=== PATIENT | female | born 1990 | race Caucasian/White ===

== ENCOUNTER 2019-05-20 19:59 | Emergency (ER) | payer MEDICAID ==
[~2019-05-20] VITALS: Ht 154.9 cm; Wt 87.0 kg
[2019-05-20] MEDS ORDERED: KETOROLAC 30MG/ML VIAL IV STA (20:48)
[2019-05-20] MEDS ORDERED: SODIUM CHLORIDE 0.9% 1,000 ML IV ONE (20:48)
[2019-05-20 21:22] LABS: CHLORIDE 107 mEq/L (98-107)
[2019-05-20 21:24] LABS: COLOR URINE ORANGE (YELLOW); KETONES URINE 2+ (NEGATIVE); LEUKOCYTE ESTERASE URINE 1+ (NEGATIVE); NITRITE URINE POSITIVE (NEGATIVE); OCCULT BLOOD URINE NEGATIVE (NEGATIVE); PROTEIN URINE NEGATIVE (NEGATIVE); SPECIFIC GRAVITY URINE 1.024 (1.005-1.030)
[2019-05-20 21:27] LABS: CLARITY URINE HAZY (CLEAR)
[2019-05-20 21:29] LABS: HEMATOCRIT. 44.4 % (36.0-48.0); HEMOGLOBIN. 15.1 g/dL (12.0-16.0); MEAN CORPUSCULAR HEMOGLOBIN 29.7 pg (28.0-32.0); MEAN CORPUSCULAR VOLUME 87.6 fL (81.0-99.0); MEAN PLATELET VOLUME 9.4 fl (7.4-10.4); PLATELET 317 x1000/uL (130-400); RED BLOOD CELL COUNT 5.07 mill/uL (4.2-5.4); RED CELL DISTRIBUTION WIDTH 14.5 % (11.6-14.6)
[2019-05-20 21:54] LABS: PLATELET ESTIMATE NORMAL
[2019-05-20 23:45] VITALS: BP 125/89
== END 2019-05-21 00:50 | disposition home or self-care (01) ==
LOC: ER 19:59
DX: N39.0 Urinary tract infection, site not specified (principal); R11.0 Nausea; Z86.73 Personal history of transient ischemic attack (TIA), and cerebral infarction without residual deficits; Z98.890 Other specified postprocedural states
CPT/HCPCS: 36415; 80053; 81003; 81025; 83690; 85025; 96374; 99283; J1885; J7030

== ENCOUNTER 2019-11-23 16:04 | Emergency (ER) | payer MEDICAID ==
[~2019-11-23] VITALS: Ht 162.6 cm; Wt 80.0 kg
[2019-11-23 16:28] VITALS: BP 112/68
== END 2019-11-24 00:09 | disposition left against medical advice (07) ==
LOC: ER 16:04
DX: R11.2 Nausea with vomiting, unspecified (principal); I49.9 Cardiac arrhythmia, unspecified; Z53.21 Procedure and treatment not carried out due to patient leaving prior to being seen by health care provider
CPT/HCPCS: 93005

== ENCOUNTER 2020-08-30 21:47 | Emergency (ER) | payer MEDICAID ==
[~2020-08-30] VITALS: Ht 154.9 cm; Wt 82.0 kg
[2020-08-30 22:41] LABS: CLARITY URINE TURBID (CLEAR); COLOR URINE YELLOW (YELLOW); KETONES URINE NEGATIVE (NEGATIVE); LEUKOCYTE ESTERASE URINE TRACE (NEGATIVE); NITRITE URINE NEGATIVE (NEGATIVE); OCCULT BLOOD URINE NEGATIVE (NEGATIVE); PH URINE 7.5 (4.5-8.0); PROTEIN URINE NEGATIVE (NEGATIVE); SPECIFIC GRAVITY URINE 1.023 (1.005-1.030)
[2020-08-30 22:42] LABS: BASOPHILS % 0.9 % (0.0-2.0); EOSINOPHILS % 2.6 % (0.0-5.0); HEMATOCRIT. 43.7 % (36.0-48.0); HEMOGLOBIN. 15.2 g/dL (12.0-16.0); LYMPHOCYTES % 24.7 % (20.0-50.0); MEAN CORPUSCULAR HEMOGLOBIN 30.9 pg (28.0-32.0); MEAN CORPUSCULAR VOLUME 89.1 fL (81.0-99.0); MEAN PLATELET VOLUME 8.6 fl (7.4-10.4); MONOCYTES % 10.6 % (2.0-8.0); NEUTROPHILS % 61.2 % (40.0-76.0); PLATELET 376 x1000/uL (130-400); RED CELL DISTRIBUTION WIDTH 13.5 % (11.6-14.6)
[2020-08-30 22:49] LABS: CHLORIDE 107 mEq/L (98-107)
[2020-08-30 23:00] LABS: B-HCG QUANTITATIVE < 1 mIU/mL (<3)
[2020-08-31] MEDS ORDERED: DOXY100C2 MT (01:07)
[2020-08-31] MEDS ORDERED: CEPH500C2 MT (01:07)
[2020-08-31] MEDS ORDERED: CEFTRIAXONE 1 G PREMIX 50 ML IV ONE (01:15)
[2020-08-31 01:50] VITALS: BP 101/67
[2020-09-02 05:08] LABS: NEISSERIA GONORRHOEAE NAA Negative (Negative)
== END 2020-08-31 02:15 | disposition home or self-care (01) ==
LOC: ER 21:51
DX: R10.2 Pelvic and perineal pain (principal); Z20.2 Contact with and (suspected) exposure to infections with a predominantly sexual mode of transmission; Z98.890 Other specified postprocedural states
CPT/HCPCS: 36415; 76830; 76856; 80053; 81003; 81025; 84702; 85025; 86850; 86900; 86901; 87210; 87491; 87591; 96365; 99284; J0696; Z7610